=== PATIENT | female | born 1990 | race Caucasian/White ===

== ENCOUNTER 2022-10-18 10:16 | Outpatient (CLI) | payer BC, SELFPAY | END 2022-10-18 10:17 | disposition home or self-care (01) | PROVIDERS: Visit Provider Registered Nurse | DX: Z31.41 Encounter for fertility testing (principal); Z13.1 Encounter for screening for diabetes mellitus | CPT/HCPCS: 82670; 83001 ==

== ENCOUNTER 2023-09-19 07:05 | Outpatient (CLI) | payer BC, SELFPAY ==
--- NOTE | 2023-09-19 07:15 | US_ITS ---
Patient: VANESSA DOVER Facility:?[facility] RIS Patient ID:?[id number] Site Patient ID:?[id number]. Site :?[id number] Study:?US-OB Pelvis TRANSVAGINAL-09/19/2023 7:39:58 AM Ordering Physician:?GIBSON HOLMAN Final Report: INDICATION: Check viability and dates TECHNIQUE: Transvaginal scanning was performed to optimally evaluate the IUP and adnexa. Ovarian blood flow was evaluated with color-flow doppler. COMPARISON: None FINDINGS: There is a living IUP with gestational age of 8 weeks 3 days by LMP and 7 weeks 3 days by today`s crown-rump length. EDC based on 05/04/2024. The embryonic heart rate is measured at 147 beats per minute. The placenta is not yet formed. No subchorionic hemorrhage is evident. A 2.4 x 2.2 x 1.9 cm left ovarian corpus luteum cyst is noted. The right ovary measures 3.0 x 1.6 x 1.6 cm and the left 4.1 x 2.7 x 2.6 cm. Ovarian blood flow is demonstrated with color-flow doppler. No adnexal mass or free fluid is apparent. IMPRESSION: 1. Living IUP with gestational age of 7 weeks 3 days by today`s crown-rump length and EDC of 05/04/2024. 2. No complication evident. Dictated by Evelio England MD @ 09/21/2023 7:58:42 AM Signed by:?Evelio England MD @09/21/2023 7:58:42 AM (Electronic Signature)
== END 2023-09-19 07:06 | disposition home or self-care (01) ==
LOC: US 07:05
PROVIDERS: PCP Registered Nurse; Visit Provider Registered Nurse
DX: Z34.91 Encounter for supervision of normal pregnancy, unspecified, first trimester (principal); Z3A.01 Less than 8 weeks gestation of pregnancy
CPT/HCPCS: 76817; 86592; 86703; 86704; 86706; 86762; 86787; 86803; 86850; 86900; 86901; 87086; 87340; 87491; 87591

== ENCOUNTER 2023-12-15 15:52 | Outpatient (CLI) | payer BC, SELFPAY ==
--- NOTE | 2023-12-15 16:00 | CRLHL7_ITS ---
For Patients: As a result of the Century Cures Act, medical imaging exams and procedure reports are released immediately into your electronic medical record. You may view this report before your referring provider. If you have questions, please contact your health care provider. OB ULTRASOUND 12/15/2023 CLINICAL HISTORY: Supervision of normal first . COMPARISON: 09/19/2023. FINDINGS: MAGY by US: 05/04/2024. GA: 19 weeks 6 days. Position: Breech. Cervix: Visualized, transabdominal, 3.7 cm. Placenta/Cord: Posterior. Technique: Transabdominal. Placenta tip to internal os: 3.9 cm. Umbilical Cord: 3 vessel cord. Placental Insertion: Marginal (within 2 cm of placental edge). Amniotic Fluid: 5.2 cm SDP. Observed Structures: Cerebellum: 2.1 cm, 21 weeks 2 days Cisterna Magna: 4.2 mm Nuchal Fold: 5.2 mm CSP Midline Falx Choroid Plexus Spine Abdomen: Stomach Abd Cord Insert Urinary Bladder Kidneys Diaphragm Face: Nose/Lips Orbital view Profile Limbs: Upper Extremities Lower Extremities Hands Feet Vascular: 4 Ch Heart LVOT RVOT 3VV 3VTV Biometry: BPD: 4.5 cm, 19 weeks 5 days. 43% HC: 17.6 cm, 20 weeks 1 day. 53% AC: 15.6 cm, 20 weeks 6 days. 75% FL: 3.3 cm, 20 weeks 2 days. 57% Heart Rate: 137 bpm. Age by this US: 20 weeks 3 days. MAGY by this US: 04/30/2024. EFW: 355.77 grams, 13 oz. Percentile by MAGY: 80% IMPRESSION: 1. Measurements are consistent with dates. Good interval growth since the prior exam. 2. Marginal cord insertion at the placenta. Cord inserts 1.8 cm from the placental edge. 3. Normal anatomic survey. Johnathan Watson M.D. Body/Diagnostic Radiologist [email or web address] Transcribed: 2:55 pm DW/Dictated by: Johnathan Watson MD @ 12/16/2023 1:53:00 PM (Electronically Signed)
== END 2023-12-15 15:53 | disposition home or self-care (01) ==
PROVIDERS: PCP Registered Nurse; Visit Provider Registered Nurse
DX: Z34.92 Encounter for supervision of normal pregnancy, unspecified, second trimester (principal); Z3A.19 19 weeks gestation of pregnancy
CPT/HCPCS: 76805

== ENCOUNTER 2024-02-10 09:14 | Outpatient (CLI) | payer BC, SELFPAY ==
--- NOTE | 2024-02-10 09:30 | CRLHL7_ITS ---
For Patients: As a result of the Century Cures Act, medical imaging exams and procedure reports are released immediately into your electronic medical record. You may view this report before your referring provider. If you have questions, please contact your health care provider. OB ULTRASOUND 02/10/2024 CLINICAL HISTORY: Marginal cord insertion. COMPARISON: 12/15/2023. FINDINGS: MAGY by LMP: 05/04/2024. GA: 28 weeks 0 days. Single gestation. CERVIX: Not visualized. POSITIONING: Vertex. AMNIOTIC FLUID SDP: 5.4 cm. PLACENTA: TA. Posterior. DOPPLERS: Heart Rate: 137 bpm. BIOMETRY: BPD: 7.4 cm, 29 weeks 4 days. 85% HC: 27.7 cm, 30 weeks 2 days. 85% AC: 25.4 cm, 29 weeks 4 days. 85% FL: 5.6 cm, 29 weeks 3 days. 75% FL/AC Ratio: 22% HC/AC Ratio: 1.09. EFW: 1414 g, 3 lb 2 oz. age by this US: 29 weeks 5 days. MAGY by this US: 04/22/2024. Percentile by MAGY: 91% IMPRESSION: Estimated weight is at the 91st percentile. Johnathan Watson M.D. Body/Diagnostic Radiologist [email or web address] Transcribed: 10:28 am DW/Dictated by: Johnathan Watson MD @ 02/11/2024 8:48:00 AM (Electronically Signed)
== END 2024-02-10 09:15 | disposition home or self-care (01) ==
LOC: US 09:14
PROVIDERS: Visit Provider Obstetrics & Gynecology
DX: Z34.93 Encounter for supervision of normal pregnancy, unspecified, third trimester (principal); Z3A.28 28 weeks gestation of pregnancy
CPT/HCPCS: 76816; 86592

== ENCOUNTER 2024-03-12 13:58 | Outpatient (CLI) | payer BC, SELFPAY ==
--- NOTE | 2024-03-12 14:00 | CRLHL7_ITS ---
For Patients: As a result of the Century Cures Act, medical imaging exams and procedure reports are released immediately into your electronic medical record. You may view this report before your referring provider. If you have questions, please contact your health care provider. ULTRASOUND OB PELVIS MAGY by LMP: 05/04/2024. GA: 32w, 3d. Single. INDICATION: Marginal cord insertion. COMPARISON: 12/15/2023, 09/19/2023. CERVIX: Not visualized. POSITIONING: Vertex. AMNIOTIC FLUID: 4.4 cm. PLACENTA: Technique: Transabdominal. PLACENTA POSITION: Posterior. DOPPLER: heart rate: 130 bpm. Biometry: BPD: 8.8 cm. 35w, 4d, >97 percent. HC: 31.5 cm. 35w, 3d, 87 percent. AC: 29.8 cm. 33w, 6d, 85 percent. FL: 6.4 cm. 33w, 2d, 60 percent. FL/AC ratio: 21.59 percent. HC/AC ratio: 1.06. EFW: 2318 g. Weight: 5 lbs, 2 oz. age by this US: 34w, 4d. MAGY by this US: 04/19/2024. Percentile by MAGY: 86 percent. IMPRESSION: Single live intrauterine gestation at 34 weeks, 4 days. MAGY of 04/19/2024. The estimated weight is 2318 g which lies at the 86th percentile. Giselle Mckeon M.D. Diagnostic/Breast Radiologist [email or web address] TONYA/magaly / bM/Dictated by: Giselle Mckeon MD @ 03/14/2024 8:28:00 AM (Electronically Signed)
== END 2024-03-12 13:59 | disposition home or self-care (01) ==
LOC: US 13:58
PROVIDERS: Visit Provider Obstetrics & Gynecology
DX: Z34.93 Encounter for supervision of normal pregnancy, unspecified, third trimester (principal); Z3A.34 34 weeks gestation of pregnancy
CPT/HCPCS: 76816

== ENCOUNTER 2024-04-05 09:14 | Outpatient (CLI) | payer BC, SELFPAY ==
--- NOTE | 2024-04-05 09:15 | CRLHL7_ITS ---
For Patients: As a result of the Century Cures Act, medical imaging exams and procedure reports are released immediately into your electronic medical record. You may view this report before your referring provider. If you have questions, please contact your health care provider. INDICATION: Marginal cord insertion TECHNIQUE: Real time lang scale imaging of the fetus was performed. COMPARISON: 03/12/2024 FINDINGS: Sonographic imaging demonstrates a single living intrauterine gestation. Fetus demonstrates a regular cardiac rate of 131 beats per minute. Fetus has a vertex position. The placenta lies posterior. Amniotic fluid volume appears normal and there is a single deepest pocket of 5.4 cm. The estimated weight is 3179gm which lies at the 87th %. On the prior OB ultrasound dated 03/12/2024 the estimated weight was at the 86th percentile. BPD greater than 97th percentile. HC 86th percentile. AC 88th percentile. FL 67th percentile. The fetus was active and demonstrated normal breathing movements. There was normal flexion and extension of the trunk and extremities. IMPRESSION: Normal biophysical profile score 8/8. Sonographic gestational age 37 weeks 5 days and sonographic due date of 04/21/2024. Sonographic age 13 days ahead of the clinical age. Estimated weight 87th percentile. Abdominal circumference 88th percentile. BPD greater than 97th percentile. Dictated by Zac Santoro MD @ 04/05/2024 4:47:50 PM (Electronically Signed)
== END 2024-04-05 09:15 | disposition home or self-care (01) ==
LOC: US 09:15
PROVIDERS: Visit Provider Obstetrics & Gynecology
DX: O43.193 Other malformation of placenta, third trimester (principal); Z3A.37 37 weeks gestation of pregnancy
CPT/HCPCS: 76816; 76819; 87081; 87186; 87653

== ENCOUNTER 2024-04-15 14:01 | Outpatient (CLI) | payer BC, SELFPAY ==
--- NOTE | 2024-04-15 14:00 | CRLHL7_ITS ---
For Patients: As a result of the Century Cures Act, medical imaging exams and procedure reports are released immediately into your electronic medical record. You may view this report before your referring provider. If you have questions, please contact your health care provider. INDICATION: Marginal cord insertion. COMPARISON: OB ultrasound 04/05/2024. TECHNIQUE: Ultrasound OB pelvis biophysical profile. Real time lang scale imaging of the fetus was performed without non-stress testing. FINDINGS: Sonographic imaging demonstrates a single living intrauterine gestation. The fetus demonstrates a regular cardiac rate of 134 beats per minute. The fetus has a cephalic orientation. The placenta lies posteriorly. Single deepest pocket measures 4.8 cm (2/2). The fetus was active (2/2). There was normal flexion and extension of the trunk and extremities (2/2). The fetus demonstrated normal breathing movements (2/2). IMPRESSION: Normal biophysical profile score 8 out of 8. Dictated by Lashon Gorman MD @ 04/16/2024 2:27:21 AM (Electronically Signed)
== END 2024-04-15 14:02 | disposition home or self-care (01) ==
LOC: US 14:01
PROVIDERS: Visit Provider Obstetrics & Gynecology
DX: Z34.90 Encounter for supervision of normal pregnancy, unspecified, unspecified trimester (principal)
CPT/HCPCS: 76819

== ENCOUNTER 2024-04-22 12:56 | Outpatient (CLI) | payer BC, SELFPAY ==
--- NOTE | 2024-04-22 13:00 | CRLHL7_ITS ---
For Patients: As a result of the Century Cures Act, medical imaging exams and procedure reports are released immediately into your electronic medical record. You may view this report before your referring provider. If you have questions, please contact your health care provider. INDICATION: Marginal cord insertion COMPARISON: 04/15/2024 TECHNIQUE: Real time lang scale imaging of the fetus was performed. Without non-stress testing. FINDINGS: Sonographic imaging demonstrates a single living intrauterine gestation. Fetus demonstrates a regular cardiac rate of 125 beats per minute. Fetus has a vertex position. The amniotic fluid volume single deepest pocket measurement of 2.5 cm. LEDA 6.1 cm. The fetus was active and demonstrated normal breathing movements. There was normal flexion and extension of the trunk and extremities. IMPRESSION: Normal biophysical profile score of 8 out of 8. SDP 2.5 cm. LEDA 6.1 cm. Dictated by Zac Santoro MD @ 04/23/2024 10:09:32 AM (Electronically Signed)
== END 2024-04-22 12:57 | disposition home or self-care (01) ==
LOC: US 12:57
PROVIDERS: Visit Provider Obstetrics & Gynecology
DX: O43.199 Other malformation of placenta, unspecified trimester (principal)
CPT/HCPCS: 76819

== ENCOUNTER 2024-04-29 08:10 | Outpatient (CLI) | payer BC, SELFPAY ==
--- NOTE | 2024-04-29 08:15 | CRLHL7_ITS ---
For Patients: As a result of the Century Cures Act, medical imaging exams and procedure reports are released immediately into your electronic medical record. You may view this report before your referring provider. If you have questions, please contact your health care provider. INDICATION: Marginal cord insertion TECHNIQUE: Ultrasound OB pelvis transabdominal. Real-time lang-scale imaging of the fetus was performed with color Doppler and spectral Doppler analysis of the umbilical artery without stress testing. COMPARISON: 04/22/2024 FINDINGS: Sonographic imaging demonstrates a single living intrauterine gestation. Fetus demonstrates a regular cardiac rate of 133 beats per minute. Fetus has a cephalic orientation. The placenta lies posterior, right lateral. Amniotic fluid volume appears normal with a MVP of 2.9 cm. breathing movements, motion, and tone were all observed. IMPRESSION: Single viable intrauterine with a biophysical profile 01/21. Dictated by Timothy Gamez MD @ 04/29/2024 9:27:53 AM (Electronically Signed)
== END 2024-04-29 08:11 | disposition home or self-care (01) ==
LOC: US 08:11
PROVIDERS: Visit Provider Obstetrics & Gynecology
DX: O09.293 Supervision of pregnancy with other poor reproductive or obstetric history, third trimester (principal); O99.820 Streptococcus B carrier state complicating pregnancy; Z3A.39 39 weeks gestation of pregnancy; O43.193 Other malformation of placenta, third trimester
CPT/HCPCS: 76819

== ENCOUNTER 2024-05-01 18:15 | Inpatient (IN) | payer BC, SELFPAY ==
[2024-05-01] VITALS (9 sets, daily range): BP systolic 131–147; BP diastolic 85–95; PULSE 68–82; RESP 16; TEMP 36.5–36.9; O2SAT 92–98; BMI 32.4
[2024-05-01 18:10] LABS: Amnisure Rom* POSITIVE
--- NOTE | 2024-05-01 18:43 | W.PM.LDBA ---
Subjective History of Present Illness Narrative: Patient is being admitted to Labor and Delivery for prelabor rupture of membranes. She is a 33 year old at 39 weeks gestation. Her full history and physical was dictated by Caroline Verdugo CNM on 04/15/24. Please see this for details. Briefly, is complicated by marginal cord insertion, obesity, GBS positivity and maternal history of melanoma. She notes leaking of fluids since about 1100 this morning. She denies any regular/painful contractions or vaginal bleeding. Endorses active movement. Specific Issues/Plans G 1 P 0 Spouse: Darien Expecting a GIRL! #H/o infertility. Conceived spontaneously #Obesity: BMI 31.6 -Hgb A1c with first OB labs -Baby Aspirin indicated due to nulliparity and elevated BMI starting at 12 weeks. Also, patient's mother had pre E. -1 hour GTT: 132 #Diagnosed with melanoma on upper back 09/2023. 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 Moh's scheduled for 04/21/24. [ ] placenta to pathology for hx of melanoma # Marginal cord insertion. 1.8 cm from the edge of the placenta Growth ultrasounds every 4 weeks starting at 28 weeks - last growth 02/09: 91%ile composite. BPD 85%, HC 85%, AC 85% and FL at 75%. SDP 5.4cm. Weekly BPP and/or NST starting at 36 weeks surveillance sheet filled out on 01/19/24 # GBS +, penicillin allergy (uncertain, possible rash as a child?) Clindamycin resistant per sensitivity Recommend ancef (low risk) or vancomycin, patient is uncertain of treatment Covid: Recommended, Declines. Tdap: 02/25/2024 RSV: 03/12/2024 Flu: 04/05/24 34 wk Hb: 12.9 H&P by Caroline Verdugo CNM on 04/15/2024 Imagin04/05/2024: Vtx, SDP: 5.4cm. EFW 3179gm, 7#0oz 87%. BPD > 97%, HC 86%, AC 88%, FL 67% OB - Problem Based A/P Additional Plan (1) PROM (premature rupture of membranes): Status: Acute (2) Group B Streptococcus carrier, antepartum: Status: Acute (3) Marginal insertion of umbilical cord: Problem details: 1.8 cm from the edge of the placenta Growth ultrasounds every 4 weeks starting between 28 and 32 weeks Weekly BPP and/or NST starting at 36 weeks Status: Acute (4) Melanoma: Problem details: : left inferior upper back. Planning treatment through [place] Status: Acute Plan Maya is a 33yo at 39w4d GA admitted for PROM. is complicated by marginal cord insertion, GBS positivity, obesity and history of melanoma. PROM occurred at about 1100, she denies regular/painful contractions. ROM confirmed by Amnisure, SVE /-2 by RN. - Plan to admit for IOL in the setting of PROM. Recommend initiation of pitocin on admission given duration since PROM and GBS positivity. Patient expressed understanding and is agreeable to plan. - GBS positive, planning ancef for prophylaxis given maternal allergy to PCN (?rash) and clindamycin resistance. - EFW by US on 04/05/24: 3179gm which lies at the 87th - BT O+, plan T/S on admission - Plan to send placenta to pathology given history of melanoma OB Exam Physical Exam Vital signs: Temp Pulse Resp BP Pulse Ox 97.8 F 75 16 132/85 97 05/01/24 17:54 05/01/24 17:54 05/01/24 17:54 05/01/24 17:54 05/01/24 17:53 Narrative: General: Alert and oriented, in no acute distress Abdomen: Gravid. FHR: Reactive NST. Baseline 120bpm, moderate variability, accelerations present, decelerations absent [place]: Rare uterine contractions SVE: /-2 and cephalic by RN exam
[2024-05-01 19:12] LABS: Basophils Absolute Auto 0.02 K/uL (0.00-0.30); Basophils Percent Auto 0.2 % (0.0-3.0); Eosinophils Absolute Auto 0.22 K/uL (0.00-0.50); Hematocrit 37.2 % (33.0-51.0); Hemoglobin* 12.6 gm/dL (12.0-16.0); Immature Granulocytes Abs Auto 0.06 K/uL (0.00-0.30); Immature Granulocytes Pct Auto 0.6 %; Lymphocytes Absolute Auto 2.27 K/uL (0.90-2.90); Lymphocytes Percent Auto 21.1 % (20-44); Mean Corpuscular HGB Conc 34 gm/dL (32-36); Mean Corpuscular Hemoglobin 30 pg (26-34); Mean Corpuscular Volume 88 fL (80-100); Monocytes Percent Auto 6.3 % (0.0-11.0); Neutrophils Percent Auto 69.8 % (42.0-72.0); Platelet Count* 272 K/uL (140-440); RDW Coefficient of Variation % 13.7 % (11.5-15.5); Red Blood Count 4.24 m/uL (4.00-5.20); White Blood Count* 10.75 K/uL (4.50-11.00)
[2024-05-01 19:16] LABS: Slide Review Reflex No
[2024-05-01] MEDS: LACTATED RINGERS 1000 ML 1,000 ML 125 ML IV (19:24)
[2024-05-01] MEDS: OXYTOCIN 30 unit/500 ML in NS 30 UNIT/500 ML BAG IVPB (19:24)
[2024-05-01] MEDS: CEFAZOLIN 2 GM in 0.9 % SODIUM CHLORIDE Mini-bag 100 ML IVPB (19:25)
[2024-05-01 21:34] LABS: Alanine Aminotransferase* 16 U/L (4-35); Aspartate Amino Transferase* 26 U/L (12-35); Creatinine* 0.4 mg/dL (0.5-1.5); Estimated Glomerular Filt Rate 134 ml/min
[2024-05-01 23:03] LABS: Total Protein Urine 25 mg/dL
[2024-05-01 23:04] LABS: Creatinine Urine 40.9 mg/dL; Protein Creatinine Ratio Urine 0.61 (0-0.19)
[2024-05-02] VITALS (62 sets, daily range): BP systolic 107–155; BP diastolic 55–96; PULSE 64–110; RESP 16; TEMP 36.4–37.1; O2SAT 95–100
[2024-05-02] MEDS: LACTATED RINGERS 1000 ML 1,000 ML IV (00:52)
[2024-05-02] MEDS: fentaNYL 250 MCG/5 ML inj 100 MCG EPIDURAL (00:52)
[2024-05-02] MEDS: LIDOCAINE 2% (PF) 5 ML VIAL EPIDURAL (00:53)
[2024-05-02] MEDS: ROPIVACAINE 0.2% 100 ml 100 ML 12 MG EPIDURAL (00:53)
--- NOTE | 2024-05-02 01:05 | PM.ANBPRC ---
[facility], [facility] Medical History Infertility Asthma ?J45.909 - Unspecified asthma, uncomplicated (ICD-10) History of abnormal cervical Pap smear ?Z87.42 - Personal history of other diseases of the female genital tract (ICD-10) Family History Maternal Grandmother Stroke Paternal Grandmother Breast cancer Social History What is your current living situation?: I presently have a place to live Problems where you live: no known problems In the past 12 months, utilities in danger of being shut off: no In the past 12 mos, have been you worried that your food would run out before you had money to buy more?: never true In the past 12 mos, the food you bought just didn't last and you didn't have money to buy more?: never true Smoking Status: Never smoker How often does anyone, including family, friends and others, physically hurt you: never How often does anyone, including family, friends and others, insult or talk down to you: never How often does anyone, including family, friends and others, threaten you with harm: never How often does anyone, including family, friends and others, scream or curse at you: never Meds Home Medications and Allergies Home Medications ?Medication ?Instructions ?Recorded ?Confirmed ?Type docosahexaenoic acid 200 mg mg PO 12/26/23 04/29/24 History capsule ( DHA) Allergies Allergy/AdvReac Type Severity Reaction Status Date / Time Penicillins Allergy Unknown Unknown Verified 04/29/24 08:00 Sulfa (Sulfonamide Allergy Unknown Unknown Verified 04/29/24 08:00 Antibiotics) Results Labs Labs: Laboratory Results - last 24 hr 05/01/24 05/01/24 05/01/24 17:04 18:01 22:41 WBC 10.75 RBC 4.24 Hgb 12.6 Hct 37.2 MCV 88 MCH 30 MCHC 34 RDW Coeff of Za 13.7 Plt Count 272 Neut % (Auto) 69.8 Lymph % (Auto) 21.1 [place] % (Auto) 6.3 Eos % (Auto) 2.0 Baso % (Auto) 0.2 Neut # (Auto) 7.50 H Lymph # (Auto) 2.27 [place] # (Auto) 0.70 Eos # (Auto) 0.22 Baso # (Auto) 0.02 Abs Immat Gran (auto) 0.06 Imm/Tot Granulo (auto) 0.6 Creatinine 0.4 L Estimated Creat Clear 201.80 Estimated GFR 134 AST 26 ALT 16 Urine Creatinine 40.9 Protein/Creatinin Ratio 0.61 H Urine Total Protein 25 Membrane Rupture POSITIVE Blood Type O Positive Antibody Screen NEGATIVE Vital Signs Vital Signs: Last Vital Signs Temp 97.7 F 05/01/24 23:09 Pulse 78 05/02/24 01:02 Resp 16 05/01/24 23:09 BP 119/76 05/02/24 01:02 Pulse Ox 98 05/02/24 01:02 Weight: 96.7 kg Height: 172.72 cm Anesthesia Procedures Epidural Insertion Patient Location: OB Start Time: 00:15 Stop Time: 01:15 Start Date: 05/02/24 Stop Date: 05/02/24 Reason for Block: primary anesthetic Patient Position: sitting Performed By: Leonidas Hollins Preanesthetic Checklist: IV checked, risks and benefits discussed, surgical consent, monitors and equipment checked, pre-op evaluation, timeout performed and anesthesia consent Prep: chlorhexidine gluconate Monitoring: blood pressure monitoring, quality assurance monitor chassis, continuous pulse oximetry and heart rate Approach: midline Vertebral Space: lumbar (1-5) Needle Type: Tuohy needle Injection Technique: continuous catheter Needle gauge: 17 Needle Length (cm): 10 cm Needle Insertion Depth (cm): 6 Catheter Gauge: 19 Catheter Type: multi-orifice Catheter at skin depth (cm): 12 Test Dose Result: negative and lidocaine 1.5% with epinephrine 1 to 200,000 Events: other
[2024-05-02] MEDS: CEFAZOLIN 1 GM in 0.9 % SODIUM CHLORIDE Mini-bag 100 ML IVPB (03:31)
[2024-05-02] MEDS: LACTATED RINGERS 1000 ML 1,000 ML 120 ML IV (04:17)
[2024-05-02] MEDS: ONDANSETRON 2 MG/ML inj 4 MG IV (04:38)
--- NOTE | 2024-05-02 06:09 | P.OBPN_ITS ---
Subjective Time Seen by Provider: 05:30 Date Seen: 05/02/24 Narrative: Maya is a 33yo at 39w5d GA admitted for IOL in the setting of PROM (1100 on 05/01). is complicated by marginal cord insertion, GBS positivity, obesity and history of melanoma. I presented to the bedside for cervical exam, where last RN exam was notable for anterior lip and 0 station at 0450. Maya is reporting pressure and urge to push with contractions. Objective Exam: General: Alert and oriented, in no acute distress Abdomen: Gravid. FHR: Category 2 - baseline 140bpm, moderate variability, intermittent early and variable decelerations. [place]: Yony q2-3 minutes SVE: 10/100/+1, OA position with mild caput Vital Signs: Last Vital Signs Temp 98 F 05/02/24 04:00 Pulse 101 H 05/02/24 06:01 Resp 16 05/02/24 04:00 BP 133/92 H 05/02/24 06:01 Pulse Ox 98 05/02/24 01:02 Plan Plan: - Begin maternal expulsive efforts - BT O+, active T/S on file - GBS positive, adequately treated with ancef - Intrapartum preeclampsia without severe features diagnosed - BP have been normal to mild range, adequate UOP, labs within normal limits (aside form proteinuria).
[2024-05-02] MEDS: miSOPROStoL 800 MCG/4 TABLET PR (07:52)
--- NOTE | 2024-05-02 08:02 | W.PM.VAGD1_ITS ---
Procedure Delivery date: 05/02/24 Procedure Done: Global Procedure Details: Normal spontaneous vaginal delivery Vaginal laceration repair Right labial laceration repair Events: Premature Rupture of Membrane Intrapartal Events: Labor Induction Delivery monitor: external FHT Route of delivery: Laceration description: Vaginal - 2nd Degree Delivery repair: Vicryl Estimated blood loss (mL): 500 Anesthesia type: Epidural Disposition: floor Complications: None Narrative: Maya Pulido is a 33yo at 39w4d GA admitted for PROM. is complicated by intrapartum development of preeclampsia without severe features, marginal cord insertion, GBS positivity, obesity and history of melanoma. heart tones on admission were category 1. Her labor was induced with pitocin and epidural was utilized for pain management. Status of bag of pederson: PROM occurred prior to admission, clear fluid. heart tones during active labor were primary category 1 with intermittent category 2. She was complete at 0544 and started pushing at 0553. She made excellent descent throughout the second stage of labor, and had a normal spontaneous vaginal deli very at 0716. heart tones during second stage of labor were category 2 for recurrent variable decelerations, with rapid return to normal baseline. Baby delivered OA, restituted MARY and the anterior and posterior shoulders delivered without difficulty. Nuchal cord: present x1, loose, delivered through. The cord was clamped and cut after delayed cord clamping. Active management of the third stage occurred with IV pitocin and gentle cord traction and the placenta delivered spontaneous and intact at 0724. Cord gases sent: no Cord blood sent for infant ABO: no details: - Liveborn female fetus at 0716 - weight pending - APGARs were 8 and 9 at 1 and 5 minutes respectively Perineum and vagina were inspected, and the following lacerations were noted: distal vaginal laceration, left labial laceration and right periurethral laceration. The vaginal laceration was closed with a deep [id number] with 2-0 vicryl for hemostasis, then with a second running/locking suture. The left labial laceration was repaired in a subcuticular fashion with 4-0 vicryl. The periurethral laceration was superficial and hemostatic, repair not completed. Repairs were completed under existing epidural and with local lidocaine infiltration. She had mild and intermittent uterine atony that improved with bimanual massage. Prophylactic cytotec 800mcg per rectum was administered to reinforce uterine tone. Total QBL 500cc. Excellent hemostasis was noted. The following counts were correct: sponges, needles, instruments. Mother and infant in stable condition following the .
[2024-05-03 03:41] VITALS: BP 143/92; PULSE 70; RESP 18; TEMP 36.4; O2SAT 96
[2024-05-03 03:58] VITALS: BP 120/83
[2024-05-03 06:51] LABS: Hemoglobin* 11.2 gm/dL (12.0-16.0)
--- NOTE | 2024-05-03 07:39 | P.DS_ITS ---
DS: Providers Provider Date Seen: 05/03/24 Date of admission: 05/01/24 18:15 Primary care physician: Not a Local Provider Admitting Clinician: Ana Villanueva MD Attending Physician on discharge: Ana Vilalnueva MD Date of Discharge: 05/03/24 DS: Diagnosis Discharge Diagnosis (1) Preeclampsia: Status: Acute (2) care and examination immediately after delivery: Status: Acute (3) Lactating mother: Status: Acute Exam Narrative: Exam Narrative: VSS, afebrile GENERAL APPEARANCE: ?normal affect, alert, no distress MOOD: ?appropriate HEENT: normocephalic, neck supple, full ROM CHEST: ?Symmetrical chest wall movement. ?Normal respiratory effort. ?Clear to auscultation HEART: ?regular rate and rhythm ABDOMEN: ?soft, non-tender. Uterine fundus is firm, 1/u Umbilicus, Midline and is appropriate for the stage of recovery. ?Bowel sounds present. PERINEUM: ?mild edema of the perineum, there is a 2nd degree laceration that is healing well. EXTREMITIES: ?normal and trace edema Const: Vital Signs, click to edit/add: Vital Signs - 24 hr 05/02/24 07:46 05/02/24 07:46 05/02/24 08:01 Temperature Pulse Rate 87 88 Pulse Rate [Blood Pressure Cuff] Respiratory Rate 16 Blood Pressure 124/64 119/68 Blood Pressure [Le ft Arm] [facility] 08:01 05/02/24 08:16 05/02/24 08:16 Temperature Pulse Rate 73 Pulse Rate [Blood Pressure Cuff] Respiratory Rate 16 16 Blood Pressure 130/73 Blood Pressure [Le ft Arm] Pulse Oximetry Oxygen Delivery [facility] 05/02/24 08:31 05/02/24 08:31 05/02/24 08:46 Temperature Pulse Rate 73 74 Pulse Rate [Blood Pressure Cuff] Respiratory Rate 16 Blood Pressure 124/72 127/76 Blood Pressure [Le ft Arm] Pulse [facility] 05/[facility] 08:46 05/02/24 09:01 05/02/24 09:01 Temperature Pulse Rate 64 Pulse Rate [Blood Pressure Cuff] Respiratory Rate 16 16 Blood Pressure 140/83 H Blood Pressure [Le ft Arm] Pulse Oximetry Oxygen Delivery [facility] 05/02/24 09:16 05/02/24 09:16 05/02/24 09:31 Temperature Pulse Rate 64 78 Pulse Rate [Blood Pressure Cuff] Respiratory Rate 16 Blood Pressure 133/80 133/92 H Blood Pressure [Le ft Arm] Pulse Oximetry Oxygen Delivery Me [facility] 05/02/24 11:52 05/02/24 15:47 05/02/24 19:41 Temperature 98.7 F 97.8 F Pulse Rate Pulse Rate [Blood Pressure Cuff] 81 76 Respiratory Rate 16 16 16 Blood Pressure Blood Pressure [Le ft Arm] 129/81 123/78 132/83 Pulse Oximetry 95 Oxygen Delivery Me thod Room Air Room Air Room Air 05/02/24 23:11 05/03/24 03:41 05/03/24 03:58 Temperature 97.6 F 97.5 F L Pulse Rate Pulse Rate [Blood Pressure Cuff] 70 Respiratory Rate 16 18 Blood Pressure Blood Pressure [Le ft Arm] 131/89 143/92 H 120/83 Pulse Oximetry 97 96 Oxygen Delivery Me thod Room Air Room Air Documenting provider has reviewed patient's vital signs: yes OB - DS: Summary Hospital Course Hospital Course: Maya is a 33 y.o. who was admitted to [facility] for PROM. ?She had an uncomplicated NVD.?The patient feels well. ?The pain is well controlled with current medications. ?She has no new complaints. ?She is breast feeding and formula feeding and reports things are going well.? the patient has done well.? Vitals have been stable, with one elevated BP overnight with normal range BP on recheck.? She has remained afebrile.? Has a good appetite, is tolerating a general diet. ?She is voiding without difficulty.? She is passing gas and has not had a bowel movement.? She is ambulating and denies any dizziness.? Has Small amount of rubra lochia. ?She is planning POPs for prevention. She was cautioned about Preeclampsia s/s to watch for on discharge, recommended she stay an additional night for monitoring but they desired discharge today. She denies SHIELDS, vision changes and upper abdominal pain. Peripartum Data delivery method: Vaginal Laceration description: Perineal - 2nd Degree complications: none Gender: Female Infant Discharge Plan: Home Status at Discharge Functional status at discharge: independent ambulation Overall status at discharge: patient is progressing back to baseline Time Spent with Patient Time attestation: Total time spent providing and/or coordinating discharge services: Time spent: Less than 30 minutes Discharge Plan Discharge Disposition: Home, Self-Care Date of Admission: 05/01/24 18:15 Attending Provider on Discharge: Milton Aranda Primary Care Provider: Provider,Not a Local Condition: Stable Anticipated Discharge Date/Time: 05/03/24 12:00 Discharge Medications: New acetaminophen 500 mg Tablet 1,000 mg PO Q6H PRNQty: 0 0RF docusate sodium 100 mg Capsule 100 mg PO DAILY Qty: 90 2RF ibuprofen 600 mg Tablet 600 mg PO Q6H PRNQty: 60 0RF Continued DHA 200 mg capsule PO Discharge Orders: Discharge Order (Routine); Ordered 05/03/24 Ordered By: Milton Aranda Patient Education: OB Over the Counter Medication Information, OB Vaginal/Breast Feeding Additional Instructions: Discharge instructions were reviewed with the patient including signs and symptoms of infection and home going medications Nothing vaginally for 6 weeks: no tampons or intercourse Do not drive while taking narcotic pain medication(s) Off Work or School for 8 weeks Symptoms to report to doctor: * Bleeding that saturates more than one pad per hour * Passing clots larger than the size of a golf ball * Pain not relieved by prescribed medication * Fever above 100.4 degrees Fahrenheit * A foul vaginal odor * Difficulty in emotions, mood, and functions * Thoughts of hurting yourself and/or * Painful, reddened area in your breast * Any drainage, redness, or tenderness in your IV/epidural site * Severe headache that doesn't improve after taking medications * Changes in vision, including temporary loss of vision, blurred vision, and/or light sensitivity * Upper abdominal pain (usually under ribs on the right side) * Decrease in urination or painful, frequent urinating * Chest pain * Shortness of breath * Tenderness or pain with redness and/swelling in the calf(s) of your leg [facility] for a BP check?[05/05/24] Call with BP greater than or equal to 150/100 2-week visit: discuss infant feeding concerns, review control options and screen for anxiety/depression. 6-week visit for an annual exam. consultation services are available to all mothers and babies for the first year after delivery.? To make an appointment, please call [phone]. Activity Level: Activity as Tolerated Discharge Diet: Regular Follow Up Appointments: [facility] [Provider Group] Forms: [facility] Info Instructions
[2024-05-03 08:45] VITALS: BP 125/86; PULSE 79; RESP 16; TEMP 36.9; O2SAT 98
--- NOTE | 2024-05-03 10:36 | PM.ANPOST ---
Post Anesthesia Note Post Anesthesia Note Patient seen: Inpatient Respiratory Status: adequate Cardiovascular Status: adequate Mental Status: baseline Pain: adequate Temp: baseline Anesthetic awareness: N/A Complications: none Follow care: none
[2024-05-03 12:12] VITALS: BP 134/86; RESP 16; O2SAT 98
[2024-05-04 10:23] LABS: Rapid Plasma Reagin (RPR) Non Reactive (Non Reactive)
== END 2024-05-03 13:32 | disposition home or self-care (01) | DRG 560 ==
LOC: OB OUT 18:15 → OB 18:15
PROVIDERS: Admitting Provider Obstetrics & Gynecology; Visit Provider Obstetrics & Gynecology
DX: O42.02 Full-term premature rupture of membranes, onset of labor within 24 hours of rupture (principal); O14.04 Mild to moderate pre-eclampsia, complicating childbirth; O70.1 Second degree perineal laceration during delivery; O62.2 Other uterine inertia; O99.824 Streptococcus B carrier state complicating childbirth; O43.193 Other malformation of placenta, third trimester; O99.214 Obesity complicating childbirth; E66.9 Obesity, unspecified; O9A.12 Malignant neoplasm complicating childbirth; C43.59 Malignant melanoma of other part of trunk; Z85.828 Personal history of other malignant neoplasm of skin; Z3A.39 39 weeks gestation of pregnancy; Z37.0 Single live birth
CPT/HCPCS: 01967; 36415; 76819; 82565; 82570; 84112; 84156; 84450; 84460; 85018; 85025; 85027; 86592; 86850; 86900; 86901; 88307; A9270; J0690; J2371; J2405; J2795; J3010; J7120